=== PATIENT | female | born 1935 | race Caucasian/White ===

== ENCOUNTER 2017-05-05 16:43 | Inpatient (IN) | payer OTHER, MEDICAID ==
[~2017-05-05] VITALS: Ht 154.9 cm; Wt 60.8 kg
[2017-05-05 18:09] LABS: BASOPHIL % 0.4 % (0-2); RED CELL DISTRIBUTION WIDTH 14.3 % (11.5-14.5)
[2017-05-05 18:22] LABS: PLATELET COUNT 116 x10^3mcL (130-400)
[2017-05-05 18:24] LABS: ALBUMIN 3.3 g/dL (3.4-5.0); ALKALINE PHOSPHATASE 49 U/L (46-116); ALT/SGPT 28 U/L (14-59); AST/SGOT 27 U/L (15-37); BILIRUBIN TOTAL 2.12 mg/dL (0.20-1.00); CALCIUM 8.3 mg/dL (8.5-10.1); CHLORIDE SERUM 100 mmol/L (98-107); CREATININE SERUM 1.3 mg/dL (0.6-1.0); GLUCOSE SERUM 161 mg/dL (74-106); SODIUM SERUM 135 mmol/L (136-145); TOTAL PROTEIN, SERUM 7.2 g/dL (6.4-8.2)
[2017-05-05 18:25] LABS: POTASSIUM SERUM 2.8 mmol/L (3.5-5.1)
[2017-05-05] MEDS ORDERED: ALENDRONATE SOD70 M2 (19:34)
[2017-05-05 19:46] LABS: UA SPECIFIC GRAVITY <=1.005 (1.005-1.035); microscopic required? YES; urine erythrocyte 3+ (NEGATIVE)
[2017-05-05 20:48] VITALS: BP 114/71
[2017-05-05 21:18] LABS: MAGNESIUM 1.8 mg/dL (1.8-2.4); PHOSPHOROUS 1.9 mg/dL (2.5-4.9)
[2017-05-05 21:19] LABS: CHOLESTEROL/HDL RATIO 2.1
[2017-05-05 21:24] LABS: T3 TOTAL 0.83 ng/mL
[2017-05-05 21:29] LABS: FREE T4 1.16 ng/dL (0.76-1.46); FREE THYROXINE INDEX 3.2 ug/dL (1.4-4.5); T4(THYROXINE) 9.5 ug/dL (4.7-13.3)
[2017-05-06 06:07] VITALS: BP 144/79
[2017-05-06 06:50] LABS: CALCIUM 7.5 mg/dL (8.5-10.1); CARBON DIOXIDE 26.1 mmol/L (21-32); CHLORIDE SERUM 110 mmol/L (98-107); CREATININE SERUM 1.3 mg/dL (0.6-1.0); GLUCOSE SERUM 110 mg/dL (74-106); MAGNESIUM 1.9 mg/dL (1.8-2.4); PHOSPHOROUS 2.5 mg/dL (2.5-4.9); POTASSIUM SERUM 4.7 mmol/L (3.5-5.1); SODIUM SERUM 142 mmol/L (136-145)
[2017-05-06 07:04] LABS: BASOPHIL % 0 % (0-2); PLATELET COUNT 98 x10^3mcL (130-400); RED CELL DISTRIBUTION WIDTH 14.8 % (11.5-14.5)
[2017-05-06 10:07] VITALS: BP 111/60
[2017-05-06 13:55] VITALS: BP 138/73
[2017-05-06 14:26] VITALS: BP 158/75
[2017-05-06 17:43] VITALS: BP 147/80
[2017-05-06 22:50] VITALS: BP 112/60
[2017-05-07 06:20] VITALS: BP 143/72
[2017-05-07 06:28] LABS: CALCIUM 7.5 mg/dL (8.5-10.1); CARBON DIOXIDE 25.6 mmol/L (21-32); CHLORIDE SERUM 106 mmol/L (98-107); GLUCOSE SERUM 114 mg/dL (74-106); SODIUM SERUM 141 mmol/L (136-145)
[2017-05-07 06:45] LABS: BASOPHIL % 0.2 % (0-2)
[2017-05-07 06:48] LABS: POTASSIUM SERUM 2.9 mmol/L (3.5-5.1)
[2017-05-07 07:03] LABS: PLATELET COUNT 93 x10^3mcL (130-400); RED CELL DISTRIBUTION WIDTH 14.7 % (11.5-14.5)
[2017-05-07 08:53] VITALS: BP 145/72
[2017-05-07 12:21] VITALS: BP 138/78
[2017-05-07] MEDS ORDERED: ALENDRONATE SOD35 M3 PO (14:42)
[2017-05-07] MEDS ORDERED: FLORASTOR1 CAP PO (14:50)
[2017-05-07] MEDS ORDERED: LEVOFLOXACIN500 M1 PO (14:50)
[2017-05-07 15:12] VITALS: BP 138/78
[2017-05-07 15:27] LABS: CALCIUM 7.8 mg/dL (8.5-10.1); CARBON DIOXIDE 28.1 mmol/L (21-32); CHLORIDE SERUM 104 mmol/L (98-107); CREATININE SERUM 1.1 mg/dL (0.6-1.0); GLUCOSE SERUM 125 mg/dL (74-106); POTASSIUM SERUM 3.4 mmol/L (3.5-5.1); SODIUM SERUM 136 mmol/L (136-145)
[2017-05-07 15:44] LABS: ALBUMIN 2.6 g/dL (3.4-5.0); BILIRUBIN DIRECT 0.27 mg/dL (0.0-0.2); BILIRUBIN TOTAL 1.2 mg/dL (0.20-1.00); TOTAL PROTEIN, SERUM 6.1 g/dL (6.4-8.2)
[2017-05-07] MEDS ORDERED: ATORVASTATIN CA10 M1 PO (19:33)
== END 2017-05-07 16:00 | disposition home health service (06) | DRG 871 ==
LOC: ED 16:43 → DU 19:31
PROVIDERS: Emergency Medicine; Family Medicine; ADMIT Family Medicine
DX: A41.9 Sepsis, unspecified organism (principal); K85.10 Biliary acute pancreatitis without necrosis or infection; I21.4 Non-ST elevation (NSTEMI) myocardial infarction; N17.0 Acute kidney failure with tubular necrosis; E44.1 Mild protein-calorie malnutrition; E87.1 Hypo-osmolality and hyponatremia; K56.7 Ileus, unspecified; R65.20 Severe sepsis without septic shock; E87.6 Hypokalemia; E83.39 Other disorders of phosphorus metabolism; R73.03 Prediabetes; M81.0 Age-related osteoporosis without current pathological fracture; E78.5 Hyperlipidemia, unspecified; Z68.25 Body mass index [BMI] 25.0-25.9, adult
CPT/HCPCS: 83880; 84439; A9500; J1644; J1885; J2405; J2543; J2785; J3480; J7030; Q0092